=== PATIENT | female | born 1940 | race Caucasian/White ===

== ENCOUNTER 2016-12-04 23:44 | Inpatient (IN) | payer MEDICARE, OTHER ==
[2016-12-05 01:27] LABS: #Basophils 0.1 thou/uL (0.0-0.2); #Eosinphils 0.1 thou/uL (0.0-0.7); #Lymphocytes 2.9 thou/uL (1.20-3.40); #Monocytes 0.2 thou/uL (0.11-0.59); #Neutrophils 7.2 thou/uL (1.40-6.50); %Basophils 0.6 % (0.0-1.0); %Eosinophils 0.9 % (0.0-10.0); %Lymphocytes 27.9 % (21.0-51.0); %Monocytes 2.2 % (0.0-10.0); Hematocrit 38.1 % (36.0-47.0); Mean Platelet Volume 9.9 fL (7.4-10.4); Red Blood Cell (RBC) Count 4.12 mill/uL (4.20-5.40); White Blood Cell (WBC) Count 10.6 thou/uL (4.8-10.8)
[2016-12-05 01:40] LABS: ALT (SGPT) 77 U/L (8-55); AST (SGOT) 57 U/L (5-34); Alkaline Phosphatase 108 U/L (40-150); Anion Gap 15 mmol/L (10-20); BUN (Urea Nitrogen) 16 mg/dL (9.8-20.1); Bilirubin, Total 1.2 mg/dL (0.2-1.2); Calc. Creatinine Clearance 0 mL/min (70-130); Carbon Dioxide 23 mmol/L (23-31); Chloride 108 mmol/L (98-107); Estimated GFR-MDRD 52; Globulin 2.3 g/dL (2.4-3.5); Protein, Total 6.1 g/dL (6.0-8.3)
[2016-12-05 01:43] LABS: Troponin I Less than 0.010 ng/mL (< 0.028)
[2016-12-05 01:52] LABS: Bilirubin Negative (Negative); Glucose, Urine (Dipstick) Negative (Negative); Ketone, Urine Negative (Negative)
[2016-12-05 01:53] LABS: Blood, Urine Small (Negative); Nitrite Negative (Negative); Protein, Urine (Dipstick) Negative (Neg-Trace); Urobilinogen 0.2 mg/dL (0.2-1.0)
[2016-12-05 02:17] LABS: Prothrombin Time 14.4 SEC (12.0-14.7)
[2016-12-05 02:18] LABS: PTT 28.6 SEC (22.9-36.1)
[2016-12-05] MEDS ORDERED: Heparin 5,000 UNITS/ML VIAL ONE (03:10)
[2016-12-05] MEDS ORDERED: Heparin 10,000 UNITS/ 10 ML VIAL SLOW IVP SCH (03:15)
[2016-12-05] MEDS ORDERED: Heparin 25,000 units/D5W 500 ML IV SCH (03:15)
[2016-12-05] MEDS ORDERED: Diltiazem HCl 125 MG, Admixture Fee 1 EACH in Sodium Chloride 0.9% 100 ML SLOW IVP SCH (03:15)
[2016-12-05] MEDS ORDERED: Ondansetron HCl/PF 4 MG/2 ML Vial IVP PRN (04:52)
[2016-12-05] MEDS ORDERED: Acetaminophen 325 MG TAB PO PRN (04:52)
[2016-12-05] MEDS ORDERED: Sodium Chloride 0.9% 1,000 ML IV SCH (04:52)
[2016-12-05] MEDS ORDERED: Ondansetron ODT 4 MG TAB SL PRN (04:52)
[2016-12-05 06:28] LABS: Troponin I Less than 0.010 ng/mL (< 0.028)
[2016-12-05 08:12] LABS: Troponin I 0.016 ng/mL (< 0.028)
[2016-12-05] MEDS: Vit A,C & E/Lutein/Minerals Tablet PO SCH ×2 (08:47→20:17)
--- NOTE | 2016-12-05 10:04 | HP ---
DATE OF SERVICE: 12/05/2016 CHIEF COMPLAINT: Heart palpitations and shortness of breath. HISTORY OF PRESENT ILLNESS: This is a 76-year-old female patient with a history of mantle cell lymp sonya, undergoing treatment from Dr. Krishnan, a history of AK in 2013, presented to the emergency dep artment with 1-2 weeks of worsening shortness of breath and weakness. The patient states that she h as been in her usual state of health. She was last seen in the office about 1 month ago for routine followup and was doing well. About 1-2 weeks ago, she noticed that she has been feeling more weak. Her legs have been feeling heavy. She was feeling more short of breath. She checked her heart ra te and oxygen level home. Her oxygen level has stayed between 97 and 99%, but she states over the p ast few days, her heart rate was getting up over 110-115. She presented to the emergency department in [place] for evaluation and she was found to be in atrial fibrillation with rapid ventricula r response. She was started on IV Cardizem with some improvement of her symptoms and she is now sameer admitted for further evaluation and treatment. PAST MEDICAL HISTORY: Mantle cell lymphoma followed by Dr. Krishnan. She had a recent small intesti ne biopsy as well as PET scan, history of coronary artery disease, status post cardiac catheterizati on in 02/2014 with balloon angioplasty of the LAD with stent placement in the LAD, hypertension, and gastroesophageal reflux disease. MEDICATIONS: Include metoprolol 25 mg daily, omeprazole 40 mg daily, multivitamin daily, Imbruvica 140 mg 4 tablets daily, and aspirin 81 mg daily. PAST SURGICAL HISTORY: Again, cardiac stent placement to LAD in 02/2014, history of appendectomy, a nd history of hysterectomy. SOCIAL HISTORY: She is . She lives at home with a friend. No alcohol, no drug use. REVIEW OF SYSTEMS: As per the history of present illness. GENERAL: She denies any recent fevers, chills or recent illness. HEENT: She denies headache, visual or hearing changes. CARDIAC: As per the history of present illness. PULMONARY: Denies cough or hemoptysis. GASTROINTESTINAL: Denies nausea, vomiting, abdominal pain, melena or hematochezia. GENITOURINARY: Denies dysuria or hematuria. NEUROLOGIC: Some chronic neck and back pain. PSYCHIATRIC: No history of depression or anxiety. PHYSICAL EXAMINATION: VITAL SIGNS: Temperature 98.1, pulse of 112, respirations 20, blood pressure 109/81, and pulse ox 9 3% on 2 liters. GENERAL: She is awake and alert, in no acute distress. She is resting comfortably. No conversatio nal dyspnea. NECK: Supple. HEART: Irregularly irregular. LUNGS: Clear anteriorly. ABDOMEN: Obese, soft, nontender, nondistended. No hepatosplenomegaly. EXTREMITIES: No edema. LABORATORY DATA: White blood cell count 10.6 thousand, hemoglobin and hematocrit 12.3 and 38.1, and platelets of 182. PT and PTT of 14.4 and 28.6. She is now on a heparin drip. Sodium 142, potassi um 3.8, chloride 108, CO2 of 23, BUN and creatinine 16 and 1.03, serum glucose of 120. AST and ALT are slightly elevated at 57 and 77. Troponin I negative x3. BNP was 320. TSH was normal at 3.3. Chest x-ray showed no active disease, possible atelectasis bilaterally. Echocardiogram is pending. ASSESSMENT AND PLAN: 1. This is a 76-year-old female with a history of mantle cell lymphoma, history of coronary artery disease, now with new onset atrial fibrillation. Agree with admission to telemetry. Continue rule out myocardial infarction protocol. Cardiology has been consulted for evaluation. 2. Atrial fibrillation. We will continue Cardizem at this time for rate control. She is on hepari n for anticoagulation. Further plans for Cardiology. 3. Lymphoma. We will continue to Imbruvica. 4. Gastrointestinal protection with a proton pump inhibitor. 5. Code status. I had discussion with patient and friend and she desires to be DO NOT RESUSCITATE.
--- NOTE | 2016-12-05 16:07 | CON ---
CARDIOLOGY CONSULTATION NOTE DATE OF CONSULTATION: 12/05/2016 REASON FOR CONSULTATION: Atrial fibrillation with rapid ventricular response. HISTORY OF PRESENT ILLNESS: Ms. Kwong is a pleasant 76-year-old white female who comes to the hosp ital for not feeling well and having elevated heart rate. She states for the last 2-3 weeks she has had worsening shortness of breath and had noted that every time she checked her oxygen saturation, her level was about 97% to 99%, but her heart rate was about 110-115. She decided to go in to the [facility] ER where she was found to be in atrial fibrillation with rapid ventricular response, whi ch was a new diagnosis, so she was eventually transferred to the [facility] in [place] for further jelena luation and care. Currently, she was started on heparin drip and diltiazem drip and her heart rate is in the 90s and she feels a little bit better. PAST MEDICAL HISTORY: 1. Mantle cell lymphoma, followed with Dr. Krishnan in remission. 2. Coronary artery disease, status post left anterior descending stent back in 2013, by Dr. Salazar. 3. Hypertension. 4. Gastroesophageal reflux disease. OUTPATIENT MEDICATIONS: Include; 1. Metoprolol 25 mg a day. 2. Omeprazole. 3. Multivitamin. 4. Imbruvica 140 mg 4 tablets daily. 5. Aspirin 81 mg a day. PAST SURGICAL HISTORY: 1. LAD stent as above. 2. Appendectomy. 3. Hysterectomy. SOCIAL HISTORY: No alcohol, tobacco or drugs. ALLERGIES: No known drug allergies. FAMILY HISTORY: Noncontributory. REVIEW OF SYSTEMS: A 12-point review of systems was done and it is all negative unless stated in th e history of present illness. PHYSICAL EXAMINATION: VITAL SIGNS: Temperature 98.1, pulse 102, respiratory rate 22, satting 93% on 2 liters and blood pr essure 123/72. GENERAL: Awake, alert and oriented x3, in no distress. HEENT: Normocephalic and atraumatic. NECK: Supple. LUNGS: Clear. CARDIOVASCULAR: S1 and S2. Irregularly irregular. Heart rate in the 80s-105s range. No murmurs o r rubs. ABDOMEN: Soft. Positive bowel sounds. EXTREMITIES: Trace edema bilaterally. SKIN: Warm and dry. LABORATORY WORK: Reviewed. UA is unremarkable. Chemistry is unremarkable. TSH is normal. Tropon in is negative x3. BNP was 320. Coags were unremarkable. Hematology was normal. IMAGING DATA: EKG was reviewed, atrial fibrillation with rapid ventricular response. Telemetry was reviewed. She remains in atrial fibrillation. Last echocardiogram was in 2014. She had a normal ejection fraction. ASSESSMENT AND PLAN: 1. Atrial fibrillation with rapid ventricular response: New onset. 2. Coronary artery disease, stable at that time. 3. History of mantle cell lymphoma in remission. PLAN: I spoke with her about the options we had. First, we can just treat with medicines for rate control versus treat her with an antiarrhythmic with plans of doing a RACHID cardioversion versus just doing an antiarrhythmic to see if this converts her into sinus rhythm. At first, she was interested in just doing medications, but eventually she asked me what entailed just a RACHID and cardioversion a nd after talking with her and explaining it to her, she would be interested in having a RACHID cardiove rsion for this. She understands also that she would need to be fully anticoagulated in this setting and I think she would be a good candidate for this. She has not had a fall in a long long time. S he cannot remember if she has ever fallen. At this time, we will plan on starting her on an amiodar one load. We will give her 400 mg b.i.d. and we will switch her heparin drip to Eliquis, we will do that this afternoon. We will stop the heparin drip and we will start Eliquis two hours later. We will plan on seeing if she converse on her own in the next couple days, if she does not, we will set her up for a RACHID cardioversion on Thursday. Thank you for letting us to participate in the care of your patient. We will follow.
[2016-12-05] MEDS: Apixaban 5 MG TAB PO SCH (20:16)
[2016-12-06] MEDS: Ibrutinib [Imbruvica] PO SCH (08:07)
[2016-12-06] MEDS: Apixaban 5 MG TAB PO SCH ×2 (08:08→21:24)
[2016-12-06] MEDS: Vit A,C & E/Lutein/Minerals Tablet PO SCH ×2 (08:08→21:25)
[2016-12-06] MEDS: Bisacodyl 5 MG TAB PO PRN ×2 (11:25→21:25)
--- NOTE | 2016-12-06 16:23 | PDOC.CTH ---
Cardiology Progress Note - Subjective She is doing well. No new issues. - Objective Vital Signs Temp Pulse Resp BP BP Pulse Ox 12/06/16 12:30 97.5 F L 127 H 20 124/85 95 12/06/16 08:12 97.5 F L 12/06/16 07:30 97.5 F L 118 H 18 12/06/16 07:02 118 H 18 97/64 Admit Weight 178 lb 9.6 oz Weight 178 lb 5 oz 12/05/16 12/06/16 12/07/16 06:59 06:59 06:59 Intake Total 48.8 1160 Output Total 150 1925 Balance -101.2 -765 - Physical Examination General/Neuro: alert & oriented x3, NAD Neck: no JVD present Lungs: unlabored respirations Heart: other: (Irregular) Abdomen: NT/ND Extremities: other: (no edema.) - Telemetry Telemetry Rhythm: Afib, HR 80-110 - Labs Result Diagrams: 12/05/16 01:09 12/06/16 05:30 Troponin/CKMB CK-MB (CK-2) 1.2 ng/mL (0-6.6) 12/05/16 07:19 Troponin I 0.016 ng/mL (< 0.028) 12/05/16 07:19 - Assessment/Plan 1. Afib rvr, new onset. 2. CAD s/p PCI to LAD 3 yrs back 3. Mantle cell lymphoma in remission. PLAN: - Continue amiodarone load. - Will increase her BB for better rate control. - Plan on RACHID/Cardioversion thursday.
[2016-12-07 01:16] LABS: Hematocrit 35.7 % (36.0-47.0)
[2016-12-07] MEDS: Apixaban 5 MG TAB PO SCH ×2 (09:26→20:52)
[2016-12-07] MEDS: Vit A,C & E/Lutein/Minerals Tablet PO SCH ×2 (09:26→20:51)
[2016-12-07] MEDS: Ibrutinib [Imbruvica] PO SCH (09:35)
--- NOTE | 2016-12-07 15:33 | PDOC.CTH ---
Cardiology Progress Note - Subjective She is more short of breath today. No chest pain. - Objective Vital Signs Temp Pulse Resp BP BP Pulse Ox 12/07/16 11:32 98.1 F 110 H 16 126/91 H 97 12/07/16 09:40 137 H 22 H 167/120 H 97 12/07/16 09:10 97.4 F L 120 H 18 94 L 12/07/16 08:25 97.4 F L 120 H 18 140/88 94 L 12/07/16 04:13 97.7 F 110 H 16 131/57 L 99 Admit Weight 178 lb 9.6 oz Weight 181 lb 12.8 oz 12/06/16 12/07/16 12/08/16 06:59 06:59 06:59 Intake Total 1160 1258 Output Total 1925 1200 Balance -765 58 - Physical Examination General/Neuro: alert & oriented x3 Neck: no JVD present Lungs: unlabored respirations, other: (Mild crackles at bliat bases.) Heart: other: (Irreg) Abdomen: NT/ND Extremities: + edema B (1+) - Telemetry Telemetry Rhythm: Afib HR 120's. - Labs Result Diagrams: 12/07/16 00:25 12/06/16 05:30 Troponin/CKMB CK-MB (CK-2) 1.2 ng/mL (0-6.6) 12/05/16 07:19 Troponin I 0.016 ng/mL (< 0.028) 12/05/16 07:19 - Assessment/Plan 1. Afib rvr, new onset. 2. CAD s/p PCI to LAD 3 yrs back 3. Mantle cell lymphoma in remission. 4. Acute systolic decompensated heart failure . PLAN: - Continue amiodarone load. - Will increase her BB - Will add IV lasix. - Plan on RACHID/Cardioversion thursday.
[2016-12-07] MEDS ORDERED: Furosemide 100 MG/10 ML VIAL SLOW IVP SCH (15:45)
[2016-12-07 17:52] LABS: Chloride 105 mmol/L (98-107)
[2016-12-07 17:53] LABS: Calcium 9.4 mg/dL (7.8-10.44)
[2016-12-07 17:55] LABS: Anion Gap 17 mmol/L (10-20); Carbon Dioxide 22 mmol/L (23-31)
[2016-12-07 17:57] LABS: BUN (Urea Nitrogen) 20 mg/dL (9.8-20.1); Calc. Creatinine Clearance 54 mL/min (70-130); Estimated GFR-MDRD 48
[2016-12-08] MEDS ORDERED: ALPRAZolam 0.5 MG TAB PO PRN (00:41)
[2016-12-08] MEDS ORDERED: ALPRAZolam 0.5 MG TAB PO SCH (00:45)
[2016-12-08 05:41] LABS: Anion Gap 15 mmol/L (10-20); BUN (Urea Nitrogen) 19 mg/dL (9.8-20.1); Calc. Creatinine Clearance 76 mL/min (70-130); Calcium 9.1 mg/dL (7.8-10.44); Carbon Dioxide 30 mmol/L (23-31); Chloride 101 mmol/L (98-107); Estimated GFR-MDRD 45
[2016-12-08] MEDS: Furosemide 40 MG/4 ML VIAL SLOW IVP SCH ×2 (07:15→15:00)
--- NOTE | 2016-12-08 08:44 | PRG ---
DATE OF SERVICE: 12/08/2016 SUBJECTIVE: The patient is feeling fine. She denies any chest pain, shortness of breath. She does feel some palpitations and she is up walking. Denies nausea and vomiting. She agrees with plan fo r cardioversion today. OBJECTIVE: VITAL SIGNS: Temperature 97.1, pulse of 95-97, respirations 12, blood pressure 124/75, pulse ox is 97% on 3 liters. GENERAL: She is awake and alert, in no acute distress. Speech is clear. NECK: Supple. CARDIOVASCULAR: Irregularly irregular. LUNGS: Clear bilaterally. ABDOMEN: Obese, soft. EXTREMITIES: With no edema. LABORATORY DATA: Sodium 143, potassium 3.4, chloride 101, CO2 of 30, BUN and creatinine 19 and 1.17 with a GFR of 45, calcium of 9.1, hemoglobin 11.3, hematocrit 35.7. ASSESSMENT AND PLAN: 1. This is a 76-year-old female with a history of mantle cell lymphoma and new onset atrial fibrill ation with rapid ventricular response, now on amiodarone, anticoagulation with Eliquis. Blood press ure controlled with Lasix and metoprolol. A planned RACHID and cardioversion per Dr. Farshad sanchez. Further plans for him. 2. Lymphoma. Will continue the Imbruvica per Dr. Krishnan and continue outpatient followup. 3. Hypertension, stable on metoprolol and amiodarone. 4. Hypokalemia. We will start potassium supplements.
[2016-12-08] MEDS: Apixaban 5 MG TAB PO SCH ×2 (09:01→21:01)
[2016-12-08] MEDS: Vit A,C & E/Lutein/Minerals Tablet PO SCH ×2 (09:01→21:01)
[2016-12-08] MEDS: Ibrutinib [Imbruvica] PO SCH ×2 (09:01→21:01)
[2016-12-08] MEDS ORDERED: Diprivan 0 ML ONE (17:01)
[2016-12-08] MEDS ORDERED: PHENYLEPHRINE-NS 100 MCG/ML 10 ML SYRINGE ONE (17:05)
[2016-12-08] MEDS ORDERED: Propofol 200 MG/20 ML VIAL ONE (17:05)
[2016-12-09 01:33] LABS: Hematocrit 39.2 % (36.0-47.0)
[2016-12-09 06:36] LABS: Anion Gap 12 mmol/L (10-20); BUN (Urea Nitrogen) 24 mg/dL (9.8-20.1); Calc. Creatinine Clearance 40 mL/min (70-130); Calcium 8.8 mg/dL (7.8-10.44); Carbon Dioxide 32 mmol/L (23-31); Chloride 98 mmol/L (98-107); Estimated GFR-MDRD 36
[2016-12-09] MEDS: Furosemide 40 MG/4 ML VIAL SLOW IVP SCH (08:14)
--- NOTE | 2016-12-09 08:57 | PRG ---
DATE OF SERVICE: 12/09/2016 SUBJECTIVE: The patient is feeling much better. She underwent RACHID and cardioversion yesterday and converted to normal sinus rhythm with one shock of 200 joules. She has been doing much better. She denies chest pain, shortness breath, or lightheadedness. She has been ambulating in the room to [facility] bathroom. She had some low blood pressure this morning, which seems to be resolving at this time. OBJECTIVE: VITAL SIGNS: Temperature 97.8, pulse of 51, respirations 16, blood pressure 107/63, pulse ox is 97% on 2 liters. GENERAL: She is awake and alert. Speech is clear. NECK: Supple. HEART: Bradycardic with no murmurs. LUNGS: Clear. ABDOMEN: Soft. EXTREMITIES: With no edema. LABORATORY DATA: Sodium 139, potassium 3.2, chloride 98, CO2 32, BUN and creatinine are 24 and 1.4 with a GFR of 36, hemoglobin and hematocrit are 12.5 and 39.2. ASSESSMENT AND PLAN: 1. This is a 76-year-old female with new onset atrial fibrillation, now cardioverted to normal sinu s rhythm with one cardioversion. She is continuing on amiodarone, anticoagulation with Eliquis. 2. Hypertension, may need to continue to decrease her metoprolol or maybe discontinue her beta bloc ker due to her bradycardia. 3. Mantle cell lymphoma. We will continue Imbruvica per Dr. Krishnan. 4. Hypokalemia likely secondary to Lasix. We will discontinue diuretics and continue low dose pota ssium supplements. DISPOSITION: Discharge home when okay with Cardiology and her blood pressure is stable and ambulati ng without risk.
[2016-12-09] MEDS: Potassium Chloride 10 MEQ TAB PO SCH (10:02)
[2016-12-09] MEDS: Vit A,C & E/Lutein/Minerals Tablet PO SCH ×2 (10:02→20:50)
[2016-12-09] MEDS: Apixaban 5 MG TAB PO SCH ×2 (10:02→20:50)
[2016-12-09] MEDS: Ibrutinib [Imbruvica] PO SCH (10:11)
[2016-12-09] MEDS ORDERED: Amiodarone HCl 150 MG, Admixture Fee 1 EACH in Dextrose 5% in Water 100 ML IVPB SCH ×3 (15:30)
[2016-12-09] MEDS: Amiodarone HCl 450 MG, Admixture Fee 1 EACH in Dextrose 5% in Water 250 ML IVPB SCH ×3 (15:59)
[2016-12-10] MEDS: Amiodarone HCl 450 MG, Admixture Fee 1 EACH in Dextrose 5% in Water 250 ML IVPB SCH ×6 (04:20→19:45)
[2016-12-10 07:21] LABS: Anion Gap 20 mmol/L (10-20); BUN (Urea Nitrogen) 25 mg/dL (9.8-20.1); Calc. Creatinine Clearance 45 mL/min (70-130); Calcium 8.9 mg/dL (7.8-10.44); Carbon Dioxide 23 mmol/L (23-31); Chloride 104 mmol/L (98-107); Estimated GFR-MDRD 42
[2016-12-10] MEDS: Ibrutinib [Imbruvica] PO SCH ×2 (09:00→10:27)
[2016-12-10] MEDS ORDERED: Ibrutinib [Imbruvica] PO SCH (09:00)
--- NOTE | 2016-12-10 09:14 | PRG ---
DATE OF SERVICE: 12/10/2016 SUBJECTIVE: The patient continues to feel fine. She denies chest pain or shortness of breath. She is tolerating being off of oxygen. She walked in the hallway with assistance yesterday without any symptoms. She did convert back to atrial fibrillation yesterday about 12:30 and is now on amiodaro ne IV drip. OBJECTIVE: VITAL SIGNS: Temperature 98.3, pulse of 102, respirations 18, blood pressure 115/84, pulse ox is 96 % on room air. GENERAL: She is awake and alert, in no acute distress. She is comfortable. NECK: Supple. HEART: Irregularly irregular. LUNGS: Clear bilaterally. ABDOMEN: Obese. EXTREMITIES: With trace edema. LABORATORY DATA: Sodium 142, potassium 4.5, chloride 104, CO2 of 23, BUN and creatinine 25 and 1.24 with GFR of 42, and magnesium of 1.7. Telemetry monitoring is atrial fibrillation. ASSESSMENT AND PLAN: 1. This is a 76-year-old female patient admitted with new onset of atrial fibrillation, who had con verted to normal sinus with cardioversion, then converted back to atrial fibrillation. She is now o n IV amiodarone and anticoagulation with Eliquis. Plan per Cardiology as far as continuing rate con trol and anticoagulation versus electrophysiology evaluation. 2. Hypertension. She is stable on a lower dose of metoprolol. 3. Mantle cell lymphoma. We will continue Imbruvica but will decrease her dose due to the interact ion with amiodarone. 3. Hypokalemia has resolved with stopping her Lasix.
[2016-12-10] MEDS: Vit A,C & E/Lutein/Minerals Tablet PO SCH ×2 (10:09→20:38)
[2016-12-10] MEDS: Potassium Chloride 10 MEQ TAB PO SCH (10:09)
[2016-12-10] MEDS: Bisacodyl 5 MG TAB PO PRN (10:09)
[2016-12-10] MEDS: Apixaban 5 MG TAB PO SCH ×2 (10:09→20:38)
[2016-12-10] MEDS ORDERED: Amiodarone HCl 150 MG, Admixture Fee 1 EACH in Dextrose 5% in Water 100 ML IVPB SCH ×3 (21:00)
[2016-12-11 00:31] LABS: Hematocrit 42.2 % (36.0-47.0)
[2016-12-11] MEDS: Amiodarone HCl 450 MG, Admixture Fee 1 EACH in Dextrose 5% in Water 250 ML IVPB SCH ×6 (06:12→20:59)
[2016-12-11 07:08] LABS: Anion Gap 12 mmol/L (10-20); BUN (Urea Nitrogen) 18 mg/dL (9.8-20.1); Calc. Creatinine Clearance 49 mL/min (70-130); Calcium 8.9 mg/dL (7.8-10.44); Carbon Dioxide 29 mmol/L (23-31); Chloride 103 mmol/L (98-107); Estimated GFR-MDRD 46
--- NOTE | 2016-12-11 08:37 | PRG ---
DATE OF SERVICE: 12/11/2016 SUBJECTIVE: The patient continues to feel well. She was walking in the hallway yesterday. She denies chest pain, shortness of breath or palpitations. She did require oxygen last night for low oxygen level. She is tolerating amiodarone drip due to recurrence of her atrial fibrillation. She denies side effects at this time. No signs of bleeding or easy bruising at this time. OBJECTIVE: VITAL SIGNS: Temperature 98.0, pulse 86 and irregular, respirations 16, blood pressure 139/93, pulse ox is 96% on 2 liters. GENERAL: She is awake and alert, in no acute distress. Conversational, no conversational dyspnea. NECK: Supple. CARDIOVASCULAR: Heart irregularly irregular. LUNGS: Clear. ABDOMEN: Soft. EXTREMITIES: With no edema. LABORATORY DATA: Hemoglobin and hematocrit 13.4 and 42.2. Sodium 140, potassium 4.2, chloride 103, CO2 of 29, BUN and creatinine 18 and 1.15 with a GFR of 46, calcium is 8.9. Telemetry monitoring is atrial fibrillation. ASSESSMENT AND PLAN: 1. This is a 76-year-old female patient with a history of mantle cell lymphoma admitted for new onset atrial fibrillation with rapid ventricular response. She converted to normal sinus rhythm with cardioversion and then converted back to atrial fibrillation. She is now rate controlled on amiodarone and anticoagulated with Eliquis. Further plan per Cardiology possibly another cardioversion and possibly switching to oral amiodarone and hopefully discharge home soon. 2. Hypertension is stable on amiodarone and metoprolol. 3. Mantle cell lymphoma continuing to Imbruvica. 4. Anxiety. Continue Xanax p.r.n. MTDD
[2016-12-11] MEDS ORDERED: Ibrutinib [Imbruvica] PO SCH (09:00)
[2016-12-11] MEDS: Ibrutinib [Imbruvica] PO SCH (09:38)
[2016-12-11] MEDS: Potassium Chloride 10 MEQ TAB PO SCH (09:39)
[2016-12-11] MEDS: Apixaban 5 MG TAB PO SCH ×2 (09:40→20:58)
[2016-12-11] MEDS: Vit A,C & E/Lutein/Minerals Tablet PO SCH ×2 (09:40→20:58)
--- NOTE | 2016-12-11 16:22 | PDOC.CTH ---
Cardiology Progress Note - Subjective Remains in AF with variable rates on amiodarone drip. Denies CV symptoms. Discussed plan of care with patient and family. ROS negative. - Objective Vital Signs Temp Pulse Pulse Pulse Resp BP BP 12/11/16 14:06 108 H 86 111/76 119/76 12/11/16 11:55 97.7 F 97 14 12/11/16 08:00 97.7 F 97 14 BP Pulse Ox Pulse Ox Pulse Ox 12/11/16 14:06 97 97 12/11/16 11:55 110/77 93 L 12/11/16 08:00 92 L Admit Weight 178 lb 9.6 oz Weight 169 lb 6.4 oz 12/10/16 12/11/16 12/12/16 06:59 06:59 06:59 Intake Total 1360 1942 Output Total 1400 1100 Balance -40 842 - Physical Examination General/Neuro: alert & oriented x3, NAD Neck: carotid US brisk, no JVD present Lungs: CTA, unlabored respirations Heart: PMI normal, other: (irregular) Abdomen: no HSM, NT/ND, soft Extremities: other: (2+ pulses, no edema) Other PE findings: Neuro: no focal motor defs - Telemetry Telemetry Rhythm: AF with variable rates - Labs Result Diagrams: 12/11/16 00:11 12/11/16 06:36 Troponin/CKMB CK-MB (CK-2) 1.2 ng/mL (0-6.6) 12/05/16 07:19 Troponin I 0.016 ng/mL (< 0.028) 12/05/16 07:19 - Assessment/Plan 1. Afib rvr, recurrent s/p DCCV. 2. CAD s/p PCI to LAD 3 yrs back 3. Mantle cell lymphoma in remission. PLAN: - Continue amiodarone load. Will switch to po dosing tomorrow. - Plan on repeat DCCV tomorrow.
[2016-12-12 06:15] LABS: Anion Gap 15 mmol/L (10-20); BUN (Urea Nitrogen) 16 mg/dL (9.8-20.1); Calc. Creatinine Clearance 56 mL/min (70-130); Calcium 8.8 mg/dL (7.8-10.44); Carbon Dioxide 25 mmol/L (23-31); Chloride 106 mmol/L (98-107); Estimated GFR-MDRD 54
[2016-12-12 06:43] VITALS: BMI 28.8
--- NOTE | 2016-12-12 07:44 | PRG ---
DATE OF SERVICE: 12/12/2016 SUBJECTIVE: The patient is feeling well. She has not had any episodes of chest pain, shortness of breath or palpitations. She is ambulating in the hallway with assistance. No falls or lightheadedn ess. She has been off oxygen since yesterday and tolerating the amiodarone drip. Plan for a secon d cardioversion today to see if she can be converted back to normal sinus and remain there. She [place] s seem anxious about possibly going back into atrial fibrillation. OBJECTIVE: VITAL SIGNS: Temperature 97.7, pulse of 99 and irregular, respiration 16, blood pressure 139/92, pu lse ox 95% on room air. Last night, her heart rate did get up into the 140s on amiodarone drip. Te lemetry monitoring, atrial fibrillation. GENERAL: She is awake and alert, in no acute distress. NECK: Supple. HEART: Irregular, irregular. LUNGS: Clear anteriorly. ABDOMEN: Obese, soft, nontender, nondistended. EXTREMITIES: With no edema. LABORATORY DATA: Sodium 142, potassium 4.3, chloride 106, CO2 25, BUN and creatinine are 16 and 1.0 with a GFR of 54. IMAGING: EKG reveals atrial fibrillation. ASSESSMENT AND PLAN: This is a 76-year-old female patient admitted for new onset atrial fibrillatio n with rapid ventricular response. She converted to normal sinus with cardioversion on 12/08/2016, then went back into atrial fibrillation. She has been on amiodarone and anticoagulated with Eliquis , but last night had a heart rate up to 140s. Dr. Salazar was planning on a second cardioversion today and switching to oral amiodarone. 1. Hypertension, stable on amiodarone and metoprolol. 2. Mantle cell lymphoma, continued Imbruvica. 3. Anxiety. We will continue Xanax p.r.n. 4. Consider SSRI as an outpatient. DISPOSITION: Possibly discharge home when okay with Cardiology.
[2016-12-12] MEDS ORDERED: Diprivan 20 ML ONE (08:17)
[2016-12-12] MEDS ORDERED: Propofol 200 MG/20 ML VIAL ONE (09:28)
--- NOTE | 2016-12-12 10:06 | OP ---
DATE OF PROCEDURE: 12/12/2016 INDICATION FOR PROCEDURE: Recurrent atrial fibrillation despite amiodarone drip. PROCEDURE IN DETAIL: Synchronized cardioversion x1 at 200 joules. EXTENSION COURSE COUNSELOR: Dr. Fred Salazar ESTIMATED BLOOD LOSS: Not applicable. COMPLICATIONS: None. DESCRIPTION OF PROCEDURE: After obtaining informed consent, the patient was brought to the PACU in a fasting state. In PACU the patient was placed in the supine position. Defibrillator pads placed anterior and posterior position. Anesthesia personnel provided Propofol for deep sedation. When ad equately sedated the defibrillator was placed in the synchronized mode and charged to 200 joules. O ne synchronized shock was delivered with successful conversion to sinus bradycardia. There were no procedural complications. She tolerated the procedure well. FINAL IMPRESSION: Status post successful cardioversion in the synchronized mode at 200 joules x1.
[2016-12-12] MEDS: Apixaban 5 MG TAB PO SCH (11:34)
[2016-12-12] MEDS: Vit A,C & E/Lutein/Minerals Tablet PO SCH (11:34)
[2016-12-12] MEDS: Ibrutinib [Imbruvica] PO SCH (11:36)
[2016-12-12] MEDS: Potassium Chloride 10 MEQ TAB PO SCH (11:36)
[2016-12-12 15:54] VITALS: BP 117/63; TEMP 97.8
== END 2016-12-12 17:59 | disposition home or self-care (01) | DRG 308 ==
LOC: ERS 23:44 → 2NO 12-05 03:00
PROVIDERS: ADMIT Family Medicine; ATTEND Family Medicine
PROC: B246ZZ4 Ultrasonography of Right and Left Heart, Transesophageal (ICD-10-PCS; 2016-12-08)
PROC: 5A2204Z Restoration of Cardiac Rhythm, Single (ICD-10-PCS; 2016-12-08)
PROC: 5A2204Z Restoration of Cardiac Rhythm, Single (ICD-10-PCS; principal; 2016-12-12)
DX: I48.2 Chronic atrial fibrillation (principal); I50.21 Acute systolic (congestive) heart failure; C83.10 Mantle cell lymphoma, unspecified site; Z92.21 Personal history of antineoplastic chemotherapy; I25.10 Atherosclerotic heart disease of native coronary artery without angina pectoris; Z95.5 Presence of coronary angioplasty implant and graft; K21.9 Gastro-esophageal reflux disease without esophagitis; Z79.82 Long term (current) use of aspirin; Z66 Do not resuscitate; F41.9 Anxiety disorder, unspecified; E87.6 Hypokalemia; T50.1X5A Adverse effect of loop [high-ceiling] diuretics, initial encounter; I11.0 Hypertensive heart disease with heart failure; E78.5 Hyperlipidemia, unspecified
CPT/HCPCS: 36415; 80048; 80053; 81003; 81015; 82553; 82565; 83735; 83880; 84443; 84484; 85014; 85018; 85025; 85049; 85610; 85730; 92960; 93005; 93010; 93306; 93312; 93798; 96374; 96375; 96376; A4216; J0282; J1642; J1644; J1940; J2704; J7050; J7070

== ENCOUNTER 2016-12-24 02:26 | Emergency (ER) | payer MEDICARE, OTHER ==
[2016-12-24] MEDS ORDERED: Ondansetron HCl/PF 4 MG/2 ML Vial ONE (02:39)
[2016-12-24 03:10] LABS: #Basophils 0.2 thou/uL (0.0-0.2); #Eosinphils 0.1 thou/uL (0.0-0.7); #Lymphocytes 5.4 thou/uL (1.20-3.40); #Monocytes 0.7 thou/uL (0.11-0.59); #Neutrophils 4.8 thou/uL (1.40-6.50); %Eosinophils 1.2 % (0.0-10.0); %Lymphocytes 48.1 % (21.0-51.0); %Monocytes 6.4 % (0.0-10.0); Hematocrit 41.6 % (36.0-47.0); Mean Platelet Volume 11.4 fL (7.4-10.4); Red Blood Cell (RBC) Count 4.55 mill/uL (4.20-5.40); White Blood Cell (WBC) Count 11.2 thou/uL (4.8-10.8)
[2016-12-24 03:32] LABS: Troponin I 0.019 ng/mL (< 0.028)
[2016-12-24] MEDS ORDERED: Promethazine HCl 25 MG/ML VIAL ONE (03:34)
[2016-12-24 03:35] LABS: ALT (SGPT) 14 U/L (8-55); AST (SGOT) 12 U/L (5-34); Alkaline Phosphatase 82 U/L (40-150); Anion Gap 12 mmol/L (10-20); BUN (Urea Nitrogen) 14 mg/dL (9.8-20.1); Bilirubin, Total 1.2 mg/dL (0.2-1.2); CK (CPK) 18 U/L (29-168); Calc. Creatinine Clearance 0 mL/min (70-130); Calcium 9.4 mg/dL (7.8-10.44); Carbon Dioxide 26 mmol/L (23-31); Chloride 106 mmol/L (98-107); Estimated GFR-MDRD 52; Globulin 2.3 g/dL (2.4-3.5); Lipase 106 U/L (8-78); Protein, Total 6.2 g/dL (6.0-8.3)
--- NOTE | 2016-12-24 08:55 | RAD ---
SINGLE VIEW OF THE CHEST: COMPARISON: 04/04/14. HISTORY: Nausea and vomiting since midnight. History of lymphoma. FINDINGS: A single view of the chest shows a normal-size cardiomediastinal silhouette. The MediPort is unchan ged in position. There is no evidence of consolidation, mass, or pleural effusion. IMPRESSION: No evidence of acute cardiopulmonary disease. POS: [facility]
--- NOTE | 2016-12-27 14:37 | EKG ---
Test Reason : Blood Pressure : / mmHG Vent. Rate : 099 BPM Atrial Rate : 308 BPM P-R Int : 000 ms QRS Dur : 094 ms QT Int : 324 ms P-R-T Axes : 000 040 199 degrees QTc Int : 415 ms Atrial fibrillation with rapid ventricular response Abnormal ECG Confirmed by CLEVELAND BURTON, BELLE ([id number]), editor managing newspaper BEATRIZ ARAYA ([id number]) on 12/27/2016 2:37:22 PM Referred By: Confirmed By:BELLE GUTHRIE MD
== END 2016-12-24 05:00 | disposition home or self-care (01) ==
LOC: ERS 02:26
DX: R11.2 Nausea with vomiting, unspecified (principal); I25.2 Old myocardial infarction; K21.9 Gastro-esophageal reflux disease without esophagitis; E78.5 Hyperlipidemia, unspecified; Z79.899 Other long term (current) drug therapy
CPT/HCPCS: 36415; 71010; 80053; 82550; 82553; 83690; 83880; 84484; 85025; 93005; 96361; 96365; 96375; J2405; J2550

== ENCOUNTER 2017-01-02 09:31 | Day surgery (SDC) | payer MEDICARE, OTHER ==
[2017-01-01 17:48] VITALS: BMI 13.2
[2017-01-02 11:11] LABS: #Basophils 0.1 thou/uL (0.0-0.2); #Eosinphils 0.1 thou/uL (0.0-0.7); #Lymphocytes 3.2 thou/uL (1.20-3.40); #Monocytes 0.7 thou/uL (0.11-0.59); #Neutrophils 5.9 thou/uL (1.40-6.50); %Eosinophils 1.3 % (0.0-10.0); %Lymphocytes 32.1 % (21.0-51.0); %Monocytes 7.1 % (0.0-10.0); Hematocrit 42.7 % (36.0-47.0); Mean Platelet Volume 8.8 fL (7.4-10.4); Red Blood Cell (RBC) Count 4.64 mill/uL (4.20-5.40)
[2017-01-02 11:20] LABS: PTT 31.6 SEC (22.9-36.1); Prothrombin Time 20.2 SEC (12.0-14.7)
[2017-01-02] MEDS ORDERED: Diprivan 20 ML ONE (11:22)
[2017-01-02] MEDS ORDERED: Propofol 200 MG/20 ML VIAL ONE (11:32)
[2017-01-02 11:52] LABS: Anion Gap 13 mmol/L (10-20); BUN (Urea Nitrogen) 12 mg/dL (9.8-20.1); Calc. Creatinine Clearance 23 mL/min (70-130); Calcium 9.3 mg/dL (7.8-10.44); Carbon Dioxide 28 mmol/L (23-31); Chloride 104 mmol/L (98-107); Estimated GFR-MDRD 50
--- NOTE | 2017-01-02 12:11 | OP ---
DATE OF PROCEDURE: 01/02/2017 PROCEDURE: Cardioversion. REFERRING PHYSICIAN: Dr. Salazar REASON FOR PROCEDURE: Ms. Kwong is a 76-year-old female with prior history of persistent atrial fi brillation with mild cardiomyopathy. She has been treated with amiodarone, now has been adequately loaded over a month. She had prior cardioversions at earlier stages of amiodarone loading, which di d not hold. We are attempting another cardioversion to maintaining sinus rhythm. Hence, her heart rates are still suboptimally controlled. The patient has been anticoagulated with Eliquis without i nterruption. PROCEDURE IN DETAIL: The patient received propofol per Anesthesia specialist. After adequate level of sedation achieved, a 150 joule shock promptly converted the patient back to sinus rhythm. PLAN: 1. Continue amiodarone, I will decrease it down to 200 mg a day. 2. Continue apixaban. 3. Continue metoprolol, but adjust it to heart rates. 4. Patient will have arrangements made for pulmonary venous isolation procedure at a later date as an outpatient. Routine followup in the office already arranged.
--- NOTE | 2017-01-05 16:00 | EKG ---
Test Reason : PREOP Blood Pressure : / mmHG Vent. Rate : 099 BPM Atrial Rate : 297 BPM P-R Int : 000 ms QRS Dur : 104 ms QT Int : 366 ms P-R-T Axes : 000 046 -58 degrees QTc Int : 469 ms Atrial flutter with variable A-V block Non-specific intra-ventricular conduction delay Nonspecific ST and T wave abnormality Abnormal ECG Confirmed by MARIO BRAVO ([id number]) on 01/05/2017 4:00:03 PM Referred By: FREDDY Confirmed By:MARIO BRAVO
== END 2017-01-02 13:35 | disposition home or self-care (01) ==
LOC: CCL 09:31
PROVIDERS: ATTEND Internal Medicine Cardiovascular Disease
DX: I48.1 Persistent atrial fibrillation (principal); I25.10 Atherosclerotic heart disease of native coronary artery without angina pectoris; I42.9 Cardiomyopathy, unspecified; I10 Essential (primary) hypertension; Z79.01 Long term (current) use of anticoagulants; Z79.899 Other long term (current) drug therapy; Z85.72 Personal history of non-Hodgkin lymphomas
CPT/HCPCS: 80048; 85025; 85610; 85730; 92960; 93005; 93010; J2704

== ENCOUNTER 2017-01-13 10:53 | Outpatient (CLI) | payer MEDICARE, OTHER ==
--- NOTE | 2017-01-14 16:29 | PET ---
PET CT 01/14/17 CLINICAL HISTORY: Lymphoma. Reference is made to 10/18/16 exam. RADIOPHARMACEUTICAL: 10.3 millicuries [id number] IV. FINDINGS: There is redemonstration of hypermetabolic activity with regard to right hilar lymph nodes with an S UV of 2.7, decreased from prior exam at 4.7. There is a new medial left supraclavicular lymph node w hich is hypermetabolic with an SUV of 2.7, and measuring 8 mm in diameter. Otherwise, prior adenopat hy on previous scan has resolved. There is hypermetabolic activity localizing to the right hemicolon about the cecum/proximal ascendin g colon with an SUV of 6. Large hiatal hernia is redemonstrated. The previously described symmetric uptake of radiotracer activity within the bilateral tonsils is re demonstrated. There are chronic L1 and L2 compression deformities redemonstrated. IMPRESSION: Mixed response to therapy with interval resolution of component of prior hypermetabolic lymph nodes, as well as a newly developed left supraclavicular hypermetabolic lymph node. Redemonstration of hyp ermetabolic, although reduced in SUV, right hilar adenopathy. There is hypermetabolic activity, which is measuring 6 SUV, within the proximal right hemicolon. As above, this is nonspecific. Recommend correlation with followup colonoscopy. POS: [facility]
== END 2017-01-13 10:54 | disposition home or self-care (01) ==
LOC: PET 10:53
PROVIDERS: ATTEND Internal Medicine Hematology & Oncology
DX: C83.13 Mantle cell lymphoma, intra-abdominal lymph nodes (principal); C85.90 Non-Hodgkin lymphoma, unspecified, unspecified site
CPT/HCPCS: 78815; A9552

== ENCOUNTER 2017-03-24 09:44 | Outpatient (CLI) | payer MEDICARE, OTHER ==
[2017-03-24] MEDS ORDERED: Iopamidol 370 76% 100 ML VIAL ONE (09:55)
--- NOTE | 2017-03-24 13:21 | CT ---
CT THORAX WITH IV CONTRAST CT ABDOMEN AND PELVIS WITH IV CONTRAST: Date: 03-24-17 History: Mantle cell lymphoma. Lymphadenopathy. History of hysterectomy and appendectomy. Comparison: 01-05-13, PET CT on 10-18-[address] abdomen and pelvis on 10-14-16.. FINDINGS: CT THORAX: Again noted is a right internal jugular vein Mediport catheter with the tip in the distal SVC. Vascular calcifications are seen in the coronary arteries and to a lesser extent involving the thorac ic aorta. The heart remains mildly enlarged. There are small bilateral pleural effusion which have developed in the interim with bibasilar atelect asis present. No discrete pulmonary nodule or mass is seen in the lungs bilaterally. There is an approximately 5 mm hypodense lesion within the left lobe of the thyroid gland. Moderate sized hiatal hernia is. A few nonspecific small prevascular space lymph nodes are seen which are stable compared to the study in 2013. There is minimal soft tissue density seen within each hilar region, likely related to mild lymphadenopathy. Findings are difficult to directly compare with the nonenhanced PET CT scan examinat ion. The soft tissue density in the left hilar region is similar to the prior study in 2013, but the soft tissue density in the right hilar region does appear slightly more prominent. The mildly enlarge d posterior mediastinal lymph node in left paraaortic location lower mediastinum is again present and overall stable in size measuring 11 mm in short axis dimension. No additional enlarged lymph nodes a re appreciated on this exam. A few low density nodular densities are seen within the left breast which were also seen on the PET C T scan examination and are overall nonspecific. CT ABDOMEN AND PELVIS: There has been interval improvement in the mass-like area of thickening involving the gastric antrum and the first and second portions of the duodenum when compared to the prior exam. There is a low att enuation area again present in the lateral segment of the left hepatic lobe which may be slightly inc reased when compared to the prior study. This could be related to lymphomatous involvement as well gi bethany patient's history. There is mild thickening of the norris of the extrahepatic common duct which was also present on the p rior study but the degree of wall thickening has increased, and there is dilatation of the extrahepat ic common duct measuring 1.2 cm. Minimal intrahepatic biliary ductal dilatation is present. Subcentimeter low density area within the superior aspect of the spleen is again present and unchange d. Parapelvic left renal cysts are present. Subcentimeter too small to characterize hypodense lesions in the left kidney are again noted. The right kidney has a normal CT appearance. The pancreas, bilateral adrenal glands, and urinary bladder have a normal CT appearance. There is blaze dence of prior hysterectomy. Vascular calcifications are seen in the abdominal aorta and iliac arteries. Again noted are scattered mesenteric and aortocaval lymph nodes which are overall not significantly c hanged in size or number compared to the prior exam. Largest lymph node in a precaval location measur es 13 mm x 11 mm. There is colonic diverticulosis. Mild compression fractures of the L1 and L2 vertebral bodies are again present. No other interval change. IMPRESSION: 1. Small bilateral pleural effusions which have increased in the interim. 2. Overall stable increased number of mildly prominent lymph nodes seen through the abdominal mesente ry and in the aortocaval region as well as posterior mediastinum and each hilar region. 3. Interval improvement in mass like prominence and neoplastic involvement of the gastric antrum and first and second portions of the duodenum. 4. Irregular low density area within the lateral segment of the left hepatic lobe, also seen on the p rior study, although more prominent on today's exam. This could be related to neoplastic involvement as well. 5. Mild dilatation of the extrahepatic common duct with minimal intrahepatic biliary ductal dilatatio n. The exact etiology for this finding is uncertain. There is mild thickening involving the norris of the extrahepatic common duct which is more prominent than on the prior exam on 10-14-16. Thickening of norris of the common duct can be see with cholangitis, but clinical correlation is warranted. Otherwis e, follow up evaluation is suggested versus GI consultation. 6. Prominent hiatal hernia. 7. Cardiomegaly. 8. Remainder of findings are as described above. POS: [facility]
== END 2017-03-24 09:45 | disposition home or self-care (01) ==
LOC: CT 09:44
PROVIDERS: ATTEND Internal Medicine Hematology & Oncology
DX: C83.13 Mantle cell lymphoma, intra-abdominal lymph nodes (principal); R11.2 Nausea with vomiting, unspecified; D70.9 Neutropenia, unspecified; J90 Pleural effusion, not elsewhere classified; K44.9 Diaphragmatic hernia without obstruction or gangrene; I51.7 Cardiomegaly; K83.8 Other specified diseases of biliary tract
CPT/HCPCS: 71260; 74177; 82565

== ENCOUNTER 2017-06-23 09:25 | Outpatient (CLI) | payer MEDICARE ==
[~2017-06-23 09:25] MED LIST: Iopamidol 370 76% 100 ML VIAL ONE
--- NOTE | 2017-06-23 11:33 | CT ---
CT CHEST AND ABDOMEN AND PELVIS WITH IV CONTRAST: INDICATIONS: History of lymphoma, appendectomy, hysterectomy, and Mediport placement. COMPARISON: CT chest, abdomen, and pelvis with IV contrast, 03/24/2017. FINDINGS: CHEST: No focal consolidation, pleural effusion, or pneumothorax is evident. Mild cardiomegaly is s table. No pathologically enlarged mediastinal lymph node is evident. The previously described lower paraaortic lymph node, measuring 1.2 cm in size now measures 6 mm. There is a moderate to prominent hiatal hernia again noted. ABDOMEN/PELVIS: The wall thickening involving the distal gastric antrum and body is improved and nor mal in appearance on today's exam. Wall thickening involving the extrahepatic bile duct has resolved . The extent of the intrahepatic biliary ductal dilatation has improved. Prominent lymphadenopathy of the upper abdomen has resolved. A previously enlarged lymph node within the mesocolon, measuring 1.4 cm, is now 3 mm, on image 51 of series 2. An enlarged portocaval lymph node, previously measurin g 1.3 cm, now measures 4 mm. The small bowel is of normal caliber. The partially opacified colon is within normal limits. No pat hologically enlarged lymph nodes are seen within the paraaortic or pelvic regions. The bladder is un remarkable. There is scattered vascular calcification noted involving the abdominopelvic vasculature . OSSEOUS STRUCTURES: There are stable compression abnormalities involving L1, L2 and L4. There is sc attered degenerative and osteoarthritic change. There is stable thoracolumbar scoliosis. IMPRESSION: 1. Findings consistent with response to therapy. Previously seen enlarged lymph nodes of the poultry hanger ior mediastinum and upper abdomen have resolved. No pathologically enlarged lymph nodes are evident. 2. The previously seen wall thickening involving the distal gastric body and antrum has resolved. 3. The wall thickening involving the extrahepatic biliary system has resolved. There is improvement of the intrahepatic biliary ductal dilatation. 4. Resolution of the previously seen small bilateral pleural effusions. 5. Stable moderate to severe hiatal hernia. 6. Stable left peripelvic renal cysts. 7. Stable compression abnormalities of L1, L2, and L4. POS: [facility]
== END 2017-06-23 09:26 | disposition home or self-care (01) ==
LOC: CT 09:25
PROVIDERS: ATTEND Internal Medicine Hematology & Oncology
DX: C83.13 Mantle cell lymphoma, intra-abdominal lymph nodes (principal); K44.9 Diaphragmatic hernia without obstruction or gangrene; N28.1 Cyst of kidney, acquired; M43.8X6 Other specified deforming dorsopathies, lumbar region
CPT/HCPCS: 71260; 74177; 82565

== ENCOUNTER 2017-09-29 09:22 | Outpatient (CLI) | payer MEDICARE ==
--- NOTE | 2017-09-29 11:00 | CT ---
CT CHEST AND ABDOMEN AND PELVIS WITH IV CONTRAST: INDICATIONS: Mantle cell lymphoma with intraabdominal lymph nodes. COMPARISON: 06/23/2017 TECHNIQUE: Multiple axial tomograms obtained through the chest, abdomen, and pelvis with IV enhancement. Oral c ontrast was administered. FINDINGS: CHEST: The lung castillo are clear. No infiltrate or effusion. No evidence of mediastinal adenopathy . No evidence of axillary adenopathy. A large fixed diaphragmatic hernia is again noted. Degenerat kirstin spine changes are again seen with wedging of the T11 and T12 vertebrae, stable. ABDOMEN AND PELVIS: The liver, spleen, and pancreas appear unremarkable. A large portion of the sto mach is fixed above the diaphragm. The visualized gastric antrum and duodenum appear unremarkable. The adrenal glands are normal. Both kidneys show symmetric function. No enhancing renal mass is seen. The left collecting structur es are mildly prominent, but are stable from prior exam. I cannot exclude parapelvic cysts on the le ft. The urinary bladder is mildly distended and unremarkable. The aorta shows atherosclerotic change but normal caliber. No retroperitoneal adenopathy identified. Small bowel loops are unremarkable. The colon appears unremarkable. Images through the pelvis show evidence of a hysterectomy. IMPRESSION: 1. Large fixed diaphragmatic hernia again noted. CT chest otherwise unremarkable with no evidence o f adenopathy 2. No evidence of intraabdominal adenopathy. No change from prior exam. POS: [facility]
[2017-09-29] MEDS ORDERED: Iopamidol 370 76% 100 ML VIAL ONE (12:29)
== END 2017-09-29 09:23 | disposition home or self-care (01) ==
LOC: CT 09:22
PROVIDERS: ATTEND Internal Medicine Hematology & Oncology
DX: C83.13 Mantle cell lymphoma, intra-abdominal lymph nodes (principal); K44.9 Diaphragmatic hernia without obstruction or gangrene
CPT/HCPCS: 71260; 74177; 80053; 82248; 82565; 83615; 84100; 84550

== ENCOUNTER 2018-02-09 09:24 | Outpatient (CLI) | payer MEDICARE ==
[2018-02-09] MEDS ORDERED: Iopamidol 370 76% 100 ML VIAL ONE (12:01)
--- NOTE | 2018-02-09 13:37 | CT ---
CT CHEST AND ABDOMEN AND PELVIS WITH IV CONTRAST: INDICATIONS: Mantle cell lymphoma. Intraabdominal lymph nodes. COMPARISON: CT chest, abdomen, and pelvis dated 09/29/2017. TECHNIQUE: Multiple axial tomograms obtained through the chest, abdomen, and pelvis with IV enhancement. Oral c ontrast was given. FINDINGS: CHEST: The lung castillo are clear of infiltrate. Mild ground glass opacities and interstitial thicke jesus in the posterior lung bases appear stable and is consistent with chronic lung change. The heart is mildly enlarged, and there is mild vascular engorgement, which is stable. No effusion, infiltrat e, or pulmonary mass lesion. There is a large, fixed diaphragmatic hernia, which is stable in appearance. No evidence of mediastinal adenopathy. No hilar adenopathy. No axillary adenopathy. The thyroid is unremarkable. The thoracic aorta shows mild atherosclerotic change with no evidence of aneurysmal d ilatation or dissection. Osseous structures are unremarkable with degenerative changes in the spine, which appear stable. ABDOMEN AND PELVIS: The liver, spleen, and pancreas are unremarkable. The adrenal glands appear normal. Evidence of parapelvic cysts in the left kidney, which appear stable. The left renal pelvis is mildl y prominent and stable. The ureters have a normal caliber and are unremarkable. The kidneys are oth erwise unremarkable and unchanged. The urinary bladder is unremarkable. Small bowel loops appear of normal caliber. The colon is unremarkable with stool and gas seen throug hout the colon. The abdominal aorta shows mild atherosclerotic calcification. No aneurysm. Small subcentimeter periaortic lymph nodes are unchanged. No evidence of adenopathy. Degenerative s pine changes with wedging of the L1 and L2 vertebra appear stable. IMPRESSION: 1. Large, fixed diaphragmatic hernia is unchanged in appearance. No adenopathy or other acute chest process. Stable findings. 2. No evidence of adenopathy. 3. CT abdomen and pelvis stable compared to 09/29/2017. POS: [facility]
== END 2018-02-09 09:25 | disposition home or self-care (01) ==
LOC: CT 09:24
PROVIDERS: ATTEND Internal Medicine Hematology & Oncology
DX: C83.13 Mantle cell lymphoma, intra-abdominal lymph nodes (principal); K44.9 Diaphragmatic hernia without obstruction or gangrene
CPT/HCPCS: 71260; 74177; 82565

== ENCOUNTER 2018-05-18 09:25 | Outpatient (CLI) | payer MEDICARE ==
[2018-05-18] MEDS ORDERED: Iopamidol 370 76% 100 ML VIAL ONE (10:00)
--- NOTE | 2018-05-18 11:31 | CT ---
CT ABDOMEN WITH CONTRAST CT PELVIS WITH CONTRAST: DATE: 05-18-18 HISTORY: 77-year-old female with mantle cell lymphoma. COMPARISON: 02-09-18 TECHNIQUE: IV injection of iodinated contrast media: 70 ml Isovue 370 Oral contrast media: Redi-Cat 2 FINDINGS: Herniation of at least 50% of the stomach into the thoracic cavity. No pleural effusion or ascites. N o small bowel dilation. No signs of colonic diverticulitis. Normal urinary bladder. Multiple parapelv ic left renal cysts. No hydronephrosis. No abdominal aortic aneurysm. Normal liver, adrenal glands, s pleen, and pancreas. No portahepatis, retroperitoneal, mesenteric, or iliac chain lymphadenopathy. No significant interval change. Old compression fractures of L1 and L2 lumbar vertebral bodies. No dest ructive osseous lesion identified. IMPRESSION: 1. No CT manifestations of active lymphoma. 2. Large hiatal hernia. 3. No interval change overall since 02-09-18. CINTIA Forman POS: [facility]
== END 2018-05-18 09:26 | disposition home or self-care (01) ==
LOC: CT 09:25
PROVIDERS: ATTEND Internal Medicine Hematology & Oncology
DX: C83.13 Mantle cell lymphoma, intra-abdominal lymph nodes (principal); K44.9 Diaphragmatic hernia without obstruction or gangrene
CPT/HCPCS: 74177; 82565

== ENCOUNTER 2018-11-30 09:07 | Outpatient (CLI) | payer MEDICARE ==
--- NOTE | 2018-11-30 10:56 | CT ---
EXAM: CT chest, abdomen, and pelvis with IV contrast: HISTORY: Mantel cell lymphoma. COMPARISON: 02/09/[address] abdomen and pelvis on 05/18/2018 FINDINGS: CT THORAX: Lungs: There is atelectasis and mild chronic lung changes present bilaterally. No pulmonary nodule or mass is seen. Pleura: No pleural effusion. Lymph nodes: No lymphadenopathy. Mediastinum: There is a moderately large hiatal hernia again seen. Dense vascular calcifications are seen in the coronary arteries and involving the thoracic aorta. The heart is mildly enlarged. A right internal jugular vein Mediport catheter remains in place. Chest wall: No abnormalities CT ABDOMEN AND PELVIS: Liver: Within normal limits. Gallbladder: Decompressed.\ Pancreas: Within normal limits. Spleen:Few tiny less than 1 cm hypodense lesions are seen within the midportion superior aspect body of the spleen. Adrenal glands: Within normal limits. Kidneys: Parapelvic left renal cysts are again seen with mild caliectasis involving the right kidney without overt hydronephrosis. This is unchanged compared to the prior exams. Urinary Bladder: The urinary bladder is unremarkable. Reproductive organs: Evidence of hysterectomy. Bowel: There is colonic diverticulosis. Loops of small bowel are normal in caliber Adenopathy:No lymphadenopathy within the abdomen or pelvis. Peritoneum: No free fluid or fluid collection is seen. No free intraperitoneal gas is identified. Abdominal wall: No abnormalities seen. Osseous structures: There are compression fractures involving the L1 and L2 vertebral bodies also see n on the prior exam with slight height loss involving the superior endplate of the L4 vertebral body also present on prior exam. Multilevel degenerative change are seen throughout the thoracic and lumbar spine. IMPRESSION: 1. A few less than 1 cm hypodense lesions within the spleen which were not definitely seen on the elyssa or exam. Developing lymphomatous involvement of the spleen cannot be entirely excluded. There is otherwise no evidence of lymphadenopathy within the chest, abdomen, or pelvis. 2. Stable large hiatal hernia. 3. Stable compression fractures involving lumbar spine. 4. Additional findings are as described above.
== END 2018-11-30 09:08 | disposition home or self-care (01) ==
LOC: CT 09:07
PROVIDERS: ATTEND Internal Medicine Hematology & Oncology
DX: C83.13 Mantle cell lymphoma, intra-abdominal lymph nodes (principal); D73.89 Other diseases of spleen; K44.9 Diaphragmatic hernia without obstruction or gangrene; M48.56XA Collapsed vertebra, not elsewhere classified, lumbar region, initial encounter for fracture; M47.814 Spondylosis without myelopathy or radiculopathy, thoracic region; M47.816 Spondylosis without myelopathy or radiculopathy, lumbar region; N28.1 Cyst of kidney, acquired; N28.89 Other specified disorders of kidney and ureter; I25.10 Atherosclerotic heart disease of native coronary artery without angina pectoris; I70.0 Atherosclerosis of aorta; J98.11 Atelectasis; Z90.710 Acquired absence of both cervix and uterus; Z95.828 Presence of other vascular implants and grafts
CPT/HCPCS: 36415; 71260; 74177; 80053; 82248; 82565; 83615; 84100; 84550

== ENCOUNTER 2019-03-29 09:17 | Outpatient (CLI) | payer MEDICARE ==
--- NOTE | 2019-03-29 11:16 | CT ---
CT of abdomen and pelvis: 03/29/2019 COMPARISON: 11/30/2018 HISTORY: Mantle cell lymphoma TECHNIQUE: Axial CT imaging obtained at 5 mm intervals from the lung bases through the pubic symphysi s with intravenous and oral contrast. Coronal and sagittal reformatted imaging obtained. FINDINGS: There is a stable large hiatal hernia. The imaged lung bases appear grossly unremarkable. There is no free intraperitoneal air or fluid. The liver, spleen, and gallbladder appear grossly unremarkable. The pancreas and bilateral adrenal glands appear grossly unremarkable. The kidneys appear grossly unr emarkable as well. No evidence for bowel inflammatory change or obstruction. There is scattered atherosclerotic calcification of the abdominal aorta and its branches. There is a lymph node anterior to the inferior vena cava on axial image 30 measuring 8 mm in short ax is dimension, not enlarged by size criteria but larger than on multiple prior studies at which time it measured 5-6 mm. Multiple smaller mildly prominent retroperitoneal nodes are seen within the left para-aortic region and aortocaval region, also slightly enlarged when compared to the prior exam. This includes an aortocaval node on axial image 34 which measures approximately 8 mm in transverse di mension, previously measuring in the 5-6 mm range. No pelvic adenopathy. Review of the osseous structures demonstrates mild stable anterior wedge compression fractures at L1 and L2 as well as multilevel lower lumbar spine facet hypertrophy and multilevel spinal disc space narrowing with degenerative endplate change, vacuum disc formation, and anterior osteophyte formation . IMPRESSION: Interval mild enlargement of retroperitoneal lymph nodes as detailed above. At this point , none of the nodes measure 1 cm or greater. Close follow-up is advised.
[2019-03-29] MEDS ORDERED: Iopamidol 370 76% 100 ML VIAL ONE (13:28)
== END 2019-03-29 09:18 | disposition home or self-care (01) ==
LOC: CT 09:17
PROVIDERS: ATTEND Internal Medicine Hematology & Oncology
DX: C83.13 Mantle cell lymphoma, intra-abdominal lymph nodes (principal); R59.0 Localized enlarged lymph nodes
CPT/HCPCS: 74177; 82565; Q9967

== ENCOUNTER 2019-08-03 08:11 | Outpatient (CLI) | payer MEDICARE ==
[2019-08-03] MEDS ORDERED: Iopamidol 370 76% 100 ML VIAL ONE (10:28)
--- NOTE | 2019-08-03 12:22 | CT ---
CT CHEST WITH IV CONTRAST CT ABDOMEN WITH IV CONTRAST CT PELVIS WITH IV CONTRAST: HISTORY: Mantle cell lymphoma, intraabdominal lymph nodes. COMPARISON: CT chest, abdomen, and pelvis of 11/30/[address] abdomen and pelvis of 03/29/2019. FINDINGS: There has been interval increase in number and size of the mediastinal lymph nodes with the largest m easuring 12 mm. Interval increase in size of the left axial oval lymph node measuring 13 x 9 mm and a round lymph node measuring 9 mm. There has also been an increase in number and size of the retrope ritoneal lymph nodes noted on the CT scan of 03/29/2019 with the largest lymph node measuring 13 x 11 mm anterior to the IVC (previously 8 x 8 mm). No pleural or pericardial effusions are seen. Chronic lung changes are stable. The liver, pancreas, adrenal glands, and kidneys are normal. No calcified gallstones are seen. A fe w tiny low-density lesions in the spleen are stable. No free air or free fluid is noted in the abdom en or pelvis.The small bowel loops are not abnormally dilated. There is mild colonic diverticulosis. A large hiatal hernia is again seen. There are vascular calcifications without evidence of aneurysmal dilatation of the thoracoabdominal a taj. There are degenerative changes in the thoracolumbar spine. Height loss in L1, L2 vertebral paty dies is stable. IMPRESSION: Interval increase in number and size of lymph nodes on both sides of the diaphragm. POS: [facility]
== END 2019-08-03 08:12 | disposition home or self-care (01) ==
LOC: CT 08:11
PROVIDERS: ATTEND Internal Medicine Hematology & Oncology
DX: C83.13 Mantle cell lymphoma, intra-abdominal lymph nodes (principal); R59.0 Localized enlarged lymph nodes
CPT/HCPCS: 71260; 74177; 82565; Q9967

== ENCOUNTER 2020-02-22 08:35 | Outpatient (CLI) | payer MEDICARE ==
--- NOTE | 2020-02-22 11:36 | CT ---
CT OF CHEST AND ABDOMEN AND PELVIS PERFORMED WITHOUT CONTRAST ENHANCEMENT: Date: 02/22/2020 HISTORY: Mantle cell carcinoma diagnosed in 2007. New diagnosis of lymphoma in July 2019, currently taking chem otherapy. This is a follow-up exam. COMPARISON: 10/25/2019 study. FINDINGS: The lungs are clear of any infiltrative process. There are no pulmonary nodules or pleural effusions identified. Thoracic aorta is normal in caliber. Coronal calcifications noted. No significant mediastinal or patrica r adenopathy appreciated on this noncontrast study. The large hiatal hernia is present, similar to [facility] previous study. CT of abdomen was performed without contrast enhancement. The liver, spleen, pancreas, and gallbladde r regions appear unremarkable. Right and left adrenal glands, and right and left kidneys are normal in size. No renal calculi or obs truction. There is what may be a small parapelvic cyst on the left. There is no significant periaorti c or aortocaval adenopathy. No significant mesenteric adenopathy seen. No bowel wall abnormalities. CT of pelvis was performed with contrast enhancement. There is no evidence of adenopathy, mass, or fr ee fluid. Review of osseous structures show arthritic changes of the spine. No concerning lytic or blastic bony change. Marked arthritic change of the right hip. IMPRESSION: 1. Stable overall exam. No significant adenopathy within the chest, abdomen, or pelvis. 2. Large hiatal hernia. POS: [facility] [place]
== END 2020-02-22 08:36 | disposition home or self-care (01) ==
LOC: CT 08:35
PROVIDERS: ATTEND Internal Medicine Hematology & Oncology
DX: C83.13 Mantle cell lymphoma, intra-abdominal lymph nodes (principal); K44.9 Diaphragmatic hernia without obstruction or gangrene
CPT/HCPCS: 71250; 74177

== ENCOUNTER 2020-09-11 08:48 | Outpatient (CLI) | payer MEDICARE | END 2020-09-11 08:49 | disposition home or self-care (01) | LOC: CT 08:48 | PROVIDERS: ATTEND Internal Medicine Hematology & Oncology | DX: C83.13 Mantle cell lymphoma, intra-abdominal lymph nodes (principal); K44.9 Diaphragmatic hernia without obstruction or gangrene | CPT/HCPCS: 36415; 71250; 74177; 80053; 82248; 82565; 83615; 84100; 84550 ==

== ENCOUNTER 2021-01-31 12:55 | Outpatient (CLI) | payer MEDICARE | END 2021-01-31 12:56 | disposition home or self-care (01) | LOC: BICULT 12:55 | PROVIDERS: ATTEND Family Medicine | DX: E03.9 Hypothyroidism, unspecified (principal); N18.4 Chronic kidney disease, stage 4 (severe); N28.89 Other specified disorders of kidney and ureter | CPT/HCPCS: 76536; 76770 ==

== ENCOUNTER 2021-02-09 22:58 | Inpatient (IN) | payer MEDICARE ==
[2021-02-10] MEDS ORDERED: Ondansetron PF 4 MG/2 ML Vial IVP PRN (01:39)
[2021-02-10 02:50] VITALS: BMI 33.5
[2021-02-10 05:42] LABS: #Lymphocytes 1.3 thou/uL (1.20-3.40); #Monocytes 0.2 thou/uL (0.11-0.59); #Neutrophils 2.2 thou/uL (1.40-6.50); %Basophils 0.1 % (0.0-1.0); %Eosinophils 0.2 % (0.0-10.0); %Lymphocytes 34.6 % (21.0-51.0); %Monocytes 5.4 % (0.0-10.0); %Neutrophils 59.6 % (42.0-75.0); Hemoglobin 11.3 g/dL (12.0-16.0); Mean Corpuscular HGB CONC 32.7 g/dL (32.0-36.0); Mean Corpuscular Hemoglobin 35.5 pg (27.0-31.0); Mean Platelet Volume 10.5 fL (7.4-10.4); Platelet Count 69 thou/uL (130-400); RBC Distribution Width 14.9 % (11.5-14.5); Red Blood Cell (RBC) Count 3.17 mill/uL (4.20-5.40); White Blood Cell (WBC) Count 3.6 thou/uL (4.8-10.8)
[2021-02-10 05:53] LABS: ALT (SGPT) 13 U/L (8-55); AST (SGOT) 19 U/L (5-34); Albumin 3.3 g/dL (3.4-4.8); Alkaline Phosphatase 75 U/L (40-110); Bilirubin, Direct 0.3 mg/dL (0.1-0.3); Bilirubin, Total 0.8 mg/dL (0.2-1.2); CRP (Inflammatory) 5.59 mg/dL (= or < 0.5); Protein, Total 5.9 g/dL (5.8-8.1)
[2021-02-10 05:58] LABS: Anion Gap 14 mmol/L (10-20); BUN (Urea Nitrogen) 24 mg/dL (9.8-20.1); Calc. Creatinine Clearance 35 mL/min (70-130); Calcium 8.6 mg/dL (7.8-10.44); Carbon Dioxide 27 mmol/L (23-31); Chloride 105 mmol/L (98-107); Glucose 88 mg/dL (83-110); Magnesium 1.7 mg/dL (1.6-2.6); Potassium 3.7 mmol/L (3.5-5.1); Sodium 142 mmol/L (136-145)
[2021-02-10] MEDS ORDERED: Famotidine 20 MG TAB PO SCH (09:00)
[2021-02-10] MEDS: Apixaban 2.5 MG TAB PO SCH ×2 (09:10→20:34)
[2021-02-10] MEDS: Metoprolol Tartrate 50 MG TAB PO SCH ×2 (09:10→20:35)
[2021-02-10] MEDS: Acetaminophen 325 MG TAB PO PRN (09:16)
[2021-02-10 15:49] LABS: SARS-CoV-2 PCR by NAA DETECTED (NotDetected)
[2021-02-11] MEDS: Acetaminophen 325 MG TAB PO PRN (02:00)
[2021-02-11 05:57] LABS: #Monocytes 0.2 thou/uL (0.11-0.59); #Neutrophils 2.4 thou/uL (1.40-6.50); %Basophils 0.2 % (0.0-1.0); %Eosinophils 0.2 % (0.0-10.0); %Lymphocytes 27.7 % (21.0-51.0); %Monocytes 6.3 % (0.0-10.0); %Neutrophils 65.6 % (42.0-75.0); Hemoglobin 11.1 g/dL (12.0-16.0); Mean Corpuscular HGB CONC 32.4 g/dL (32.0-36.0); Mean Corpuscular Hemoglobin 35.2 pg (27.0-31.0); Mean Platelet Volume 10.1 fL (7.4-10.4); Platelet Count 80 thou/uL (130-400); RBC Distribution Width 14.8 % (11.5-14.5); Red Blood Cell (RBC) Count 3.16 mill/uL (4.20-5.40); White Blood Cell (WBC) Count 3.6 thou/uL (4.8-10.8)
[2021-02-11 06:22] LABS: Anion Gap 11 mmol/L (10-20); BUN (Urea Nitrogen) 19 mg/dL (9.8-20.1); Calc. Creatinine Clearance 39 mL/min (70-130); Calcium 8.9 mg/dL (7.8-10.44); Carbon Dioxide 30 mmol/L (23-31); Chloride 105 mmol/L (98-107); Glucose 91 mg/dL (83-110); Magnesium 1.7 mg/dL (1.6-2.6); Potassium 3.6 mmol/L (3.5-5.1); Sodium 142 mmol/L (136-145)
[2021-02-11] MEDS: Apixaban 2.5 MG TAB PO SCH (08:37)
[2021-02-11] MEDS: Metoprolol Tartrate 50 MG TAB PO SCH (08:37)
[2021-02-11] MEDS ORDERED: Amiodarone 200 MG TAB PO SCH (09:00)
[2021-02-11] MEDS ORDERED: Furosemide 20 MG TAB PO PRN (09:01)
[2021-02-11 12:14] VITALS: BP 118/70; TEMP 98
[2021-02-12] MEDS ORDERED: Levothyroxine Sodium 88 MCG TAB PO SCH (06:00)
== END 2021-02-11 15:49 | disposition home or self-care (01) | DRG 177 ==
LOC: 2SW 22:58
PROVIDERS: ADMIT Internal Medicine; ATTEND Internal Medicine
PROC: 8E0ZXY6 Isolation (ICD-10-PCS; principal; 2021-02-10)
DX: U07.1 COVID-19 (principal); J12.82 Pneumonia due to coronavirus disease 2019; D61.810 Antineoplastic chemotherapy induced pancytopenia; C83.10 Mantle cell lymphoma, unspecified site; Z66 Do not resuscitate; I25.10 Atherosclerotic heart disease of native coronary artery without angina pectoris; I48.91 Unspecified atrial fibrillation; E78.5 Hyperlipidemia, unspecified; K21.9 Gastro-esophageal reflux disease without esophagitis; N18.30 Chronic kidney disease, stage 3 unspecified; T45.1X5A Adverse effect of antineoplastic and immunosuppressive drugs, initial encounter; M54.2 Cervicalgia; M54.9 Dorsalgia, unspecified; G89.29 Other chronic pain; Z79.899 Other long term (current) drug therapy; Z90.49 Acquired absence of other specified parts of digestive tract; Z90.710 Acquired absence of both cervix and uterus; Z95.0 Presence of cardiac pacemaker; Z98.890 Other specified postprocedural states
CPT/HCPCS: 36415; 80048; 80076; 83735; 85025; 86140; U0003; U0005

== ENCOUNTER 2021-02-26 08:50 | Outpatient (CLI) | payer MEDICARE | END 2021-02-26 08:51 | disposition home or self-care (01) | LOC: CT 08:50 | PROVIDERS: ATTEND Internal Medicine Hematology & Oncology | DX: C83.13 Mantle cell lymphoma, intra-abdominal lymph nodes (principal); K44.9 Diaphragmatic hernia without obstruction or gangrene; I25.10 Atherosclerotic heart disease of native coronary artery without angina pectoris; R91.8 Other nonspecific abnormal finding of lung field | CPT/HCPCS: 71250; 74177; 80053; 82248; 83615; 84100; 84550; 85025 ==

== ENCOUNTER 2021-06-20 00:16 | Inpatient (IN) | payer MEDICARE, OTHER ==
[2021-06-20] MEDS ORDERED: Ondansetron PF 4 MG/2 ML Vial IVP PRN (03:43)
[2021-06-20] MEDS ORDERED: Acetaminophen 325 MG TAB PO PRN (03:43)
[2021-06-20 06:26] LABS: #Lymphocytes 1.7 thou/uL (1.20-3.40); #Monocytes 0.2 thou/uL (0.11-0.59); %Basophils 0.5 % (0.0-1.0); %Eosinophils 0.4 % (0.0-10.0); %Lymphocytes 34.6 % (21.0-51.0); %Monocytes 3.3 % (0.0-10.0); %Neutrophils 61.2 % (42.0-75.0); Hemoglobin 8.1 g/dL (12.0-16.0); Mean Corpuscular HGB CONC 32.2 g/dL (32.0-36.0); Mean Corpuscular Hemoglobin 37.5 pg (27.0-31.0); Mean Platelet Volume 11.2 fL (7.4-10.4); Platelet Count 18 thou/uL (130-400); RBC Distribution Width 18.4 % (11.5-14.5); Red Blood Cell (RBC) Count 2.16 mill/uL (4.20-5.40); White Blood Cell (WBC) Count 4.9 thou/uL (4.8-10.8)
[2021-06-20 06:43] LABS: ALT (SGPT) 15 U/L (8-55); AST (SGOT) 381 U/L (5-34); Albumin 3.2 g/dL (3.4-4.8); Alkaline Phosphatase 92 U/L (40-110); Bilirubin, Direct 0.2 mg/dL (0.1-0.3); Bilirubin, Total 0.6 mg/dL (0.2-1.2); Magnesium 2.1 mg/dL (1.6-2.6); Protein, Total 5.1 g/dL (5.8-8.1)
[2021-06-20 06:43] LABS: Anion Gap 17 mmol/L (10-20); BUN (Urea Nitrogen) 51 mg/dL (9.8-20.1); Calc. Creatinine Clearance 28 mL/min (70-130); Calcium 7.8 mg/dL (7.8-10.44); Carbon Dioxide 20 mmol/L (23-31); Chloride 109 mmol/L (98-107); Glucose 95 mg/dL (83-110); Potassium 4.5 mmol/L (3.5-5.1); Sodium 141 mmol/L (136-145)
[2021-06-20 08:34] LABS: Free T4 (Free Thyroxine) 1.06 ng/dL (0.70-1.48)
[2021-06-20] MEDS ORDERED: Non-Formulary Item 1 EACH (Omeprazole [Omeprazole] 40 MG Capsule.Dr) PO SCH (09:00)
[2021-06-20] MEDS: Metoprolol Tartrate 50 MG TAB PO SCH ×2 (09:34→20:32)
[2021-06-20] MEDS: Furosemide 20 MG TAB PO SCH (09:34)
[2021-06-20] MEDS: Levothyroxine Sodium 100 MCG TAB PO SCH (09:34)
[2021-06-21 04:06] LABS: Anion Gap 13 mmol/L (10-20); BUN (Urea Nitrogen) 42 mg/dL (9.8-20.1); Calc. Creatinine Clearance 31 mL/min (70-130); Calcium 8.1 mg/dL (7.8-10.44); Carbon Dioxide 24 mmol/L (23-31); Chloride 107 mmol/L (98-107); Glucose 88 mg/dL (83-110); Magnesium 1.9 mg/dL (1.6-2.6); Potassium 3.7 mmol/L (3.5-5.1); Sodium 140 mmol/L (136-145)
[2021-06-21 04:14] LABS: #Lymphocytes 1.1 thou/uL (1.20-3.40); #Monocytes 0.2 thou/uL (0.11-0.59); #Neutrophils 1.1 thou/uL (1.40-6.50); %Basophils 0.4 % (0.0-1.0); %Eosinophils 0.4 % (0.0-10.0); %Lymphocytes 47.1 % (21.0-51.0); %Monocytes 6.8 % (0.0-10.0); %Neutrophils 45.2 % (42.0-75.0); Hemoglobin 8.4 g/dL (12.0-16.0); Mean Corpuscular HGB CONC 32.6 g/dL (32.0-36.0); Mean Corpuscular Hemoglobin 38.2 pg (27.0-31.0); Mean Platelet Volume 8.6 fL (7.4-10.4); Platelet Count 50 thou/uL (130-400); RBC Distribution Width 18.3 % (11.5-14.5); White Blood Cell (WBC) Count 2.4 thou/uL (4.8-10.8)
[2021-06-21] MEDS ORDERED: Amiodarone 200 MG TAB PO SCH (09:00)
[2021-06-21] MEDS: Levothyroxine Sodium 100 MCG TAB PO SCH (09:13)
[2021-06-21] MEDS: Furosemide 20 MG TAB PO SCH (09:13)
[2021-06-21] MEDS: Metoprolol Tartrate 50 MG TAB PO SCH ×2 (09:13→09:17)
[2021-06-21 12:24] VITALS: TEMP 97.9
[2021-06-21 12:44] VITALS: BP 119/71
== END 2021-06-21 13:30 | disposition home or self-care (01) | DRG 641 ==
LOC: IMCU/EMU 02:52 → OBSVTOIN 16:14
PROVIDERS: ADMIT Internal Medicine; ATTEND Family Medicine
PROC: 30233R1 Transfusion of Nonautologous Platelets into Peripheral Vein, Percutaneous Approach (ICD-10-PCS; principal; 2021-06-20)
DX: E86.0 Dehydration (principal); N17.9 Acute kidney failure, unspecified; I50.22 Chronic systolic (congestive) heart failure; I48.20 Chronic atrial fibrillation, unspecified; C83.13 Mantle cell lymphoma, intra-abdominal lymph nodes; E87.2 Acidosis; D64.9 Anemia, unspecified; I25.10 Atherosclerotic heart disease of native coronary artery without angina pectoris; G89.29 Other chronic pain; R74.8 Abnormal levels of other serum enzymes; K21.9 Gastro-esophageal reflux disease without esophagitis; E78.5 Hyperlipidemia, unspecified; D69.59 Other secondary thrombocytopenia; T45.1X5A Adverse effect of antineoplastic and immunosuppressive drugs, initial encounter; N18.30 Chronic kidney disease, stage 3 unspecified; F41.9 Anxiety disorder, unspecified; Z92.21 Personal history of antineoplastic chemotherapy; Z91.041 Radiographic dye allergy status; Z79.899 Other long term (current) drug therapy; Z95.5 Presence of coronary angioplasty implant and graft; Z90.49 Acquired absence of other specified parts of digestive tract; Z90.710 Acquired absence of both cervix and uterus; I25.2 Old myocardial infarction; R59.0 Localized enlarged lymph nodes
CPT/HCPCS: 36415; 36430; 71250; 74177; 80048; 80076; 82565; 83735; 83880; 84439; 84443; 84481; 85025; 86850; 86900; 86901; 93306; G0378; P9035